=== PATIENT | female | born 1965 | race Caucasian/White ===

== ENCOUNTER 2018-08-01 17:40 | Emergency (ER) | payer OTHER ==
--- NOTE | 2018-08-01 18:04 | PDOC ---
Rapid Medical Evaluation Time Seen by Provider: 08/01/18 17:59 Medical Evaluation: 08/01/18 17:59 I have performed a brief in-person evaluation of this patient. The patient presents with a chief complaint of: URI symptoms x 1 month. Patient reports coughing headache and bodyaches. Took no medication so far Pertinent physical exam findings: NAD intermittent coughing in triage, even and unlabored breathing no wheezing tenderness of mid chest I have ordered the following: nebulizer, ekg, flu swab The patient will proceed to the ED for further evaluation.
[2018-08-01] MEDS ORDERED: ALBUTEROL SO4 2.5/IPRATROPIUM 0.5 INH SOL 3 ML VIAL.NEB. NEB ONE (18:06)
[2018-08-01 18:14] VITALS: BP 103/58; PULSE 98; TEMP 98.8; BMI 35.0
--- NOTE | 2018-08-01 19:41 | PDOC ---
History of Present Illness - General Chief Complaint: Cold Symptoms Stated Complaint: ONE MONTH WITH FEVER Time Seen by Provider: 08/01/18 17:59 History Source: Patient Exam Limitations: No Limitations - History of Present Illness Initial Comments: 08/01/18 19:41 Patient came with complaints of body aches, fevers, sore throat pain earache pain and worsening cough over the past 2 days. States is been coughing on and off for over a month, has seen her PMD with minimal resolved. Was given an albuterol nebulizer in the waiting room, EKG was performed, chest x-ray was taken. Timing/Duration: reports: just prior to arrival, changing over time, getting worse Severity: reports: mild, moderate Associated Symptoms: reports: chest pain/soreness, cough, dizziness, fever/ chills, nasal congestion, wheezing Past History - Travel Traveled outside of the country in the last 30 days: No Close contact w/someone who was outside of country & ill: No - Past Medical History Allergies/Adverse Reactions: Allergies Allergy/AdvReac Type Severity Reaction Status Date / Time shrimp Allergy Verified 08/01/18 18:00 Home Medications: Ambulatory Orders Albuterol Sulfate Inhaler - [Ventolin HFA Inhaler -] 1 - 2 inh PO Q4H #1 inhaler 08/01/18 Albuterol Sulfate [Proventil HFA Inhaler -] 1 - 2 inh PO TID 08/01/18 Gabapentin [Neurontin] 300 mg PO TID 08/01/18 Glimepiride [Amaryl -] 4 mg PO DAILY@0700 08/01/18 Methotrexate [Mexate -] 25 mg PO Q7D 08/01/18 Oseltamivir Phosphate [Tamiflu -] 75 mg PO BID #10 capsule 08/01/18 Tofacitinib Citrate [Xeljanz Xr] 11 mg PO ASDIR 08/01/18 Asthma: Yes COPD: No Dialysis: Yes - Surgical History Appendectomy: Yes - Suicide/Smoking/Psychosocial Hx Smoking History: Former smoker Have you smoked in the past 12 months: No Information on smoking cessation initiated: No Review of Systems - Review of Systems Able to Perform ROS?: Yes Is the patient limited Malian proficient: Yes Constitutional: Yes: Symptoms Reported, See HPI, Fever, Loss of Appetite, Malaise HEENTM: Yes: See HPI, Nose Congestion. No: Symptoms Reported Respiratory: Yes: Symptoms reported, See HPI, Cough, Wheezing ABD/GI: Yes: Nausea. No: Symptoms Reported Integumentary: Yes: See HPI. No: Symptoms Reported All Other Systems: Reviewed and Negative *Physical Exam - Vital Signs Last Vital Signs Temp Pulse Resp BP Pulse Ox 98.8 F 98 H 24 H 103/58 L 98 08/01/18 18:04 08/01/18 18:04 08/01/18 18:04 08/01/18 18:04 08/01/18 18:04 - Physical Exam General Appearance: Yes: Nourished, Appropriately Dressed, Mild Distress, Moderate Distress HEENT: positive: THANH, TMs Normal (very scarred, and congested but landmarks visualized) Neck: positive: Supple, Lymphadenopathy (R), Lymphadenopathy (L) Respiratory/Chest: positive: Lungs Clear, Accessory Muscle Use, Wheezing Gastrointestinal/Abdominal: positive: Soft (morbidly obese), Distended, Guarding , Rebound. negative: Tender Musculoskeletal: positive: Normal Inspection Extremity: positive: Normal Inspection Integumentary: positive: Dry, Warm, Pale Neurologic: positive: weft straightener II-XII NML intact, Fully Oriented, Alert, Normal Mood/ Affect, Normal Response, Motor Strength 5/5 Moderate Sedation - Procedure Monitoring Vital Signs: Procedure Monitoring Vital Signs Temperature 98.8 F 08/01/18 18:04 Pulse Rate 98 H 08/01/18 18:04 Respiratory Rate 24 H 08/01/18 18:04 Blood Pressure 103/58 L 08/01/18 18:04 O2 Sat by Pulse Oximetry (%) 98 08/01/18 18:04 Heart Score/ECG Review - ECG Intrepretation Rhythm: Regular Rhythm - ST and T Prolonged Q-T Interval: No - ECG Impressions Normal ECG: Yes Non-specific ST Elevation: No Ischemic Changes: No ED Treatment Course - Medications Given in the ED: ED Medications Discontinued Medications Generic Name Dose Route Start Last Admin Trade Name Freq PRN Reason Stop Dose Admin Albuterol/Ipratropium 1 amp 08/01/18 18:06 08/01/18 18:18 Duoneb - NEB 08/01/18 18:07 1 amp ONCE ONE Administration Progress Note - Progress Note Progress Note: Influenza A positive , and window, will treat with Tamiflu, and provide albuterol inhaler. Encouraged to follow up this week with PMD for further pulmonary evaluation for chronic cough *DC/Admit/Observation/Transfer Diagnosis at time of Disposition: Influenza A - Discharge Dispostion Disposition: HOME Condition at time of disposition: Stable Decision to Admit order: No - Referrals Referrals: ON STAFF,NOT [Primary Care Provider] - - Patient Instructions Printed Discharge Instructions: DI for Influenza -- Adult Additional Instructions: Rest, drink lots of fluids: Teas, water, soups, Pedialyte Saltwater gargles Steamy showers/seem to face break up mucus Old-fashioned treatments help! Avoid contact with others until fevers and cough resolved as this is very contagious Lots of handwashing and good hygiene Continue [id number] medications for symptomatic relief 2 puffs of albuterol every 4-6 hours for the next 2 days then as needed Tylenol or Motrin for fever and pain Take all of Tamiflu as directed: 1 tab every 12 hours for 5 days Followup with private physician in one to 2 days as needed or if worsening Return to emergency department for worsened symptoms, fevers, dehydration Influenza takes between 5 and 7 days for resolution To not participate in any activity, work, or school until fevers and cough are gone for at least one day - Post Discharge Activity Forms/Work/School Notes: Back to Work
--- NOTE | 2018-08-02 15:06 | EKG ---
Test Reason : Blood Pressure : / mmHG Vent. Rate : 088 BPM Atrial Rate : 088 BPM P-R Int : 140 ms QRS Dur : 078 ms QT Int : 352 ms P-R-T Axes : 046 015 048 degrees QTc Int : 425 ms NORMAL SINUS RHYTHM LOW VOLTAGE QRS BORDERLINE ECG NO PREVIOUS ECGS AVAILABLE Confirmed by Mansoor Ch MD ([id number]) on 08/02/2018 3:06:24 PM Referred By: Confirmed By:Mansoor Ch MD
== END 2018-08-01 19:57 | disposition home or self-care (01) ==
LOC: JERFT 17:40 → JER 17:40 → JERFT 19:57
PROC: 3E0F7GC Introduction of Other Therapeutic Substance into Respiratory Tract, Via Natural or Artificial Opening (ICD-10-PCS; principal; 2018-08-01)
DX: J09.X2 Influenza due to identified novel influenza A virus with other respiratory manifestations (principal)
CPT/HCPCS: 71045-TC-FY; 87804; 93005; 93010; 94640; 99281-25